=== PATIENT | female | born 1950 | race Caucasian/White ===

== ENCOUNTER 2024-05-16 10:44 | Day surgery (SDC) | payer MEDICARE, SELFPAY ==
[2024-05-16] VITALS (12 sets, daily range): BP systolic 142–170; BP diastolic 73–96; PULSE 52–88; RESP 14–18; TEMP 36.5–36.9; O2SAT 91–97; BMI 22.6
[2024-05-16] MEDS: LACTATED RINGERS 1000 ML 1,000 ML 100 ML IV (11:00)
[2024-05-16] MEDS: CEFAZOLIN 2 GM INJ IVP (11:55)
--- NOTE | 2024-05-16 11:59 | P.ANES_ITS ---
Anesthesia Charges Start Date/Time Anesthesia Start Date: 05/16/24 Anesthesia Start Time: 11:41 Stop Date/Time Anesthesia Stop Date: 05/16/24 Anesthesia Stop Time: 12:36 Summary Extremes of Age - Over 70 or under 1: [employer]
--- NOTE | 2024-05-16 12:11 | SUR.OPER ---
Local brought in by and administered by Dr. Bermudez. Local is mixture of Carbocaine 3% and Lidocaine HCl 2% with Epi 1:100,000
--- NOTE | 2024-05-16 12:14 | SUR.OPER ---
local administed by Dr. Bermudez is 4 vials (1.7ml each) of Lidocaine 2% with epi 1:100,000 and 2 vials of carbocaine 3% (1.7ml each)
== END 2024-05-16 10:45 | disposition home or self-care (01) ==
PROVIDERS: PCP Family Medicine; Visit Provider Oral & Maxillofacial Surgery
PROC: [UNRECOGNIZED PROCEDURE] (CPT 41899; principal; 2024-05-16 12:00)
DX: K02.9 Dental caries, unspecified (principal); K03.81 Cracked tooth; M26.30 Unspecified anomaly of tooth position of fully erupted tooth or teeth
CPT/HCPCS: 41899; 00170; 99100; J0330; J0690; J1100; J2405; J2704; J3010; J7120

== ENCOUNTER 2024-05-23 09:15 | Outpatient (RCR) | payer MEDICARE, SELFPAY | END 2024-07-13 16:21 | disposition home or self-care (01) | PROVIDERS: PCP Family Medicine; Visit Provider Family Medicine | DX: M25.512 Pain in left shoulder (principal); G89.29 Other chronic pain; M79.602 Pain in left arm; Z74.09 Other reduced mobility; Z51.89 Encounter for other specified aftercare | CPT/HCPCS: 97110; 97140; 97161 ==

== ENCOUNTER 2025-06-13 14:46 | Outpatient (CLI) | payer MEDICARE, SELFPAY | END 2025-06-13 14:47 | disposition home or self-care (01) | LOC: NFLDREF 06-15 15:39 | PROVIDERS: PCP Family Medicine; Referring Provider Family Medicine; Visit Provider Physician Assistant | DX: N30.01 Acute cystitis with hematuria (principal) | CPT/HCPCS: 87086 ==